=== PATIENT | male | born 1955 | race Caucasian/White ===

== ENCOUNTER 2020-09-20 20:37 | Observation (INO) ==
[2020-09-20 23:17] LABS: Basophils # 0.1 K/mcL (0.0-0.2); Basophils % 0.7 %; Eosinophils # 0.4 K/mcL (0.0-0.6); Eosinophils % 5.7 %; Hematocrit 38.9 % (37.5-50.1); Hemoglobin 12.5 g/dL (12.9-16.9); Immature Granulocytes % 0.1 % (0-4); Lymphocytes # 2.2 K/mcL (0.6-4.6); Lymphocytes % 33.4 %; Mean Corpuscular HGB Conc 32.1 g/dL (31.6-35.5); Mean Corpuscular Hemoglobin 29.3 pg (28.0-33.3); Mean Corpuscular Volume 91.1 fL (83.0-100.0); Monocytes # 0.8 K/mcL (0.0-1.3); Monocytes % 12.2 %; Neutrophils # 3.2 K/mcL (1.6-8.9); Platelet Count 244 K/mcL (140-400); Red Blood Count 4.27 M/mcL (4.19-5.50); Red Cell Distribution Width 13.9 % (11.5-14.5); Segmented Neutrophils % 47.9 %; White Blood Count 6.7 K/mcL (4.3-11.1)
[2020-09-20 23:29] LABS: BUN/Creatinine Ratio 24 (6-26); Blood Urea Nitrogen 20 mg/dL (8-23); Calcium 8.8 mg/dL (8.6-10.3); Carbon Dioxide 25 mEq/L (23-29); Chloride 107 mEq/L (98-107); Glucose 126 mg/dL (70-105); Osmolality,Calculated 290 (280-300); Sodium 138 mEq/L (136-145); eGFR For African Americans > 60 (> 60); eGFR For Non-African Americans > 60 (> 60)
[2020-09-20] MEDS ORDERED: Naloxone 0.4 MG/ML INJ IVP PRN (23:50)
[2020-09-20] MEDS ORDERED: Acetaminophen 325 MG TABLET PO PRN (23:50)
[2020-09-21] MEDS ORDERED: Lidocaine -MPF 2% 2 ML VIAL ONE (07:20)
[2020-09-21] MEDS ORDERED: Ondansetron 4 MG/2 ML VIAL ONE (07:20)
[2020-09-21] MEDS ORDERED: Dexamethasone 4 MG/ML VIAL ONE (07:20)
[2020-09-21] MEDS ORDERED: *HR* FentaNYL (PF) 100 MCG/2 ML VIAL ONE (07:21)
[2020-09-21] MEDS ORDERED: *HR* Propofol 200 MG/20 ML VIAL IVP ONE (07:21)
[2020-09-21] MEDS ORDERED: ceFAZolin 2,000 MG in Water for inj. (sterile) 20 ML IVP ONE (07:38)
[2020-09-21] MEDS ORDERED: Lactobacillus 1 EACH CAP.SPRINK PO SCH (09:00)
[2020-09-21] MEDS ORDERED: *HR* HYDROcodone/Acet 5/325 mg TABLET PO PRN (09:39)
[2020-09-21] MEDS ORDERED: Naloxone 0.4 MG/ML INJ IVP PRN (09:39)
[2020-09-21] MEDS ORDERED: *HR* OxyCODONE Immed Rel 5 MG TABLET PO PRN (09:39)
[2020-09-21] MEDS: levoFLOXacin 500 MG/100 ML 500 MG/100 ML BAG IVPB SCH (10:01)
[2020-09-21] MEDS: Acetaminophen 325 MG TABLET PO PRN ×2 (10:01→20:10)
[2020-09-21 10:31] LABS: Hematocrit 43.1 % (37.5-50.1); Hemoglobin 13.5 g/dL (12.9-16.9); Mean Corpuscular HGB Conc 31.3 g/dL (31.6-35.5); Mean Corpuscular Hemoglobin 29.5 pg (28.0-33.3); Mean Corpuscular Volume 94.1 fL (83.0-100.0); Mean Platelet Volume 9.9 fL (9.4-12.4); Platelet Count 183 K/mcL (140-400); Red Blood Count 4.58 M/mcL (4.19-5.50); Red Cell Distribution Width 13.8 % (11.5-14.5); White Blood Count 5.3 K/mcL (4.3-11.1)
[2020-09-21 10:52] LABS: BUN/Creatinine Ratio 23 (6-26); Blood Urea Nitrogen 17 mg/dL (8-23); Calcium 8.9 mg/dL (8.6-10.3); Carbon Dioxide 25 mEq/L (23-29); Chloride 107 mEq/L (98-107); Glucose 122 mg/dL (70-105); Osmolality,Calculated 287 (280-300); Potassium 4.8 mEq/L (3.5-5.1); Sodium 137 mEq/L (136-145); eGFR For African Americans > 60 (> 60); eGFR For Non-African Americans > 60 (> 60)
[2020-09-22 07:28] VITALS: BP 137/67
[2020-09-22] MEDS: levoFLOXacin 500 MG/100 ML 500 MG/100 ML BAG IVPB SCH (08:12)
[2020-09-22] MEDS: Acetaminophen 325 MG TABLET PO PRN (08:17)
[2020-09-22] MEDS ORDERED: Lactobacillus 1 EACH CAP.SPRINK PO SCH (09:00)
== END 2020-09-22 10:45 | disposition home or self-care (01) ==
LOC: EMEROOARM 20:37 → 3ANU 20:37 → SUATTDRO 23:35 → 3ANU 09-21 00:16
PROVIDERS: ADMIT Student in an Organized Health Care Education/Training Program; ATTEND Family Medicine